=== PATIENT | female | born 1955 | race Caucasian/White ===

== ENCOUNTER 2019-06-21 12:37 | Emergency (ER) | payer OTHER ==
[2019-06-21] MEDS ORDERED: GI COCKTAIL 45 ML (Maalox/Lidocaine) PO ONE (13:17)
[2019-06-21] MEDS ORDERED: Zofran 4 MG/2 ML VIAL IV ONE (13:17)
[2019-06-21] MEDS ORDERED: Sodium Chloride 0.9% 1000 ML 1,000 ML IV STA (13:17)
[2019-06-21] MEDS ORDERED: Pepcid 20 MG VIAL IV ONE ×2 (13:17→13:23)
[2019-06-21] MEDS ORDERED: XYLOCAINE HCl Viscous ONE (13:23)
[2019-06-21] MEDS ORDERED: Zofran 4 MG/2 ML VIAL ONE (13:23)
[2019-06-21] MEDS ORDERED: MAALOX ES 30 ML UNIT DOSE ONE (13:26)
[2019-06-21] MEDS ORDERED: Sodium Chloride 0.9% 1000 ML 1,000 ML ONE (13:26)
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
[2019-06-21 13:44] LABS: BASOPHIL % 0.7 % (0.0-0.4); Basophil (Absolute #) 0.05 (0-0.4); Eosinophil (Absolute #) 0.29 (0-0.5); Granulocyte Absolute (ANC) 4.93 (1.4-6.9); Granulocytes % 67.3 % (36.0-66.0); Hematocrit 41.5 % (35-47); Hemoglobin 13.6 gm/dl (12.0-16.0); Lymphocyte (Absolute #) 1.42 (1.0-4.6); Lymphocytes % 19.4 % (24.0-44.0); Mean Cell Volume 94.7 fl (78-100); Mean Corpuscular Hemoglobin 31.1 pg (26-32); Mean Corpuscular Hgb Concent. 32.8 g/dl (32-36); Mean Platelet Volume 11.8 fl (6-9.5); Monocyte (Absolute #) 0.63 (0.0-1.3); Monocytes % 8.6 % (0.0-12.0); Platelet Count 188 K/mm3 (150-450); Red Blood Count 4.38 M/mm3 (4.1-5.4); Red Cell Distribution Width 14.3 % (11.5-14.0); White Blood Count 7.3 K/mm3 (4.0-10.5)
[2019-06-21 13:51] LABS: Appearance CLEAR (CLEAR); Bilirubin NEGATIVE (NEGATIVE); Blood NEGATIVE Ery/ul (0-5); Glucose NEGATIVE (NEGATIVE); Ketones NEGATIVE (NEGATIVE); Leukocyte Esterase NEGATIVE (NEGATIVE); Nitrite NEGATIVE (NEGATIVE); Protein,Urine Dip NEGATIVE (Negative); RBC 0-2 /HPF (0-2); Specific Gravity 1.019 (1.005-1.025); Urobilinogen NEGATIVE mg/dL (0-1)
[2019-06-21 14:09] LABS: ALBUMIN 3.9 g/dL (3.5-5.0); ALKALINE PHOSPHATASE 164 U/L (38-126); AMYLASE 57 U/L (30-110); ANION GAP 10.5 MEQ/L (5-15); BLOOD UREA NITROGEN 10 mg/dL (7-17); CHLORIDE 106 mmol/L (98-107); Calcium 9.5 mg/dL (8.4-10.2); Carbon Dioxide 27 mmol/L (22-30); Creatinine 1 0.82 mg/dL (0.52-1.04); Glucose 96 mg/dL (74-106); LIPASE 50 U/L (23-300); Potassium 3.9 mmol/L (3.5-5.1); SGOT/AST 26 U/L (14-36); SGPT/ALT 21 U/L (0-35); SODIUM 140 mmol/L (137-145); Total Protein 7.3 g/dL (6.3-8.2)
[2019-06-21] MEDS ORDERED: SUBLIMAZE 100 MCG/2 ML IV ONE (14:29)
[2019-06-21] MEDS ORDERED: SUBLIMAZE 100 MCG/2 ML ONE (14:33)
[2019-06-21 16:31] VITALS: BP 154/76; PULSE 61
[2019-06-21 16:46] VITALS: O2SAT 98
--- NOTE | 2019-06-21 20:22 | XRAY ---
Indication: Epigastric pain, nausea, and vomiting. Comparison: None 2 views of the abdomen demonstrates nonspecific nonobstructed bowel gas pattern with previous gastric bypass. No free air. Solid organs are unremarkable. Osseous structures intact with mild osteopenia, mild/moderate multilevel thoracolumbar degenerative spondylosis, and moderate double curvature scoliosis. Single PA chest is clear. Heart is not enlarged. Small hiatal hernia. Bony thorax intact with mild degenerative changes. Impression: Small hiatal hernia. Nonacute nonobstructed abdomen. Nonacute 1 view chest.
== END 2019-06-21 17:08 | disposition home or self-care (01) ==
LOC: ED 12:37
DX: K27.9 Peptic ulcer, site unspecified, unspecified as acute or chronic, without hemorrhage or perforation (principal); R10.13 Epigastric pain
CPT/HCPCS: 36000; 36415; 74022; 80053; 81001; 82150; 83605; 83690; 84484; 85025; 93005; 96360; 96374; 96375; 99284; J2405; J3010; A9270-GY

== ENCOUNTER 2021-09-06 08:31 | Day surgery (SDC) | payer MEDICARE ==
[2021-09-06] MEDS ORDERED: Sodium Chloride 0.9(Preservative Free) 10 ML IJ ONE (08:32)
[2021-09-06] MEDS ORDERED: Depo-Medrol 40 MG/ML IM ONE (08:32)
[2021-09-06] MEDS ORDERED: DIPRIVAN 200 MG/20 ML IV ONE (09:44)
--- NOTE | 2021-09-06 11:44 | XRAY ---
Indication: Right L4-S1 transforaminal JAMEL. Intraoperative fluoroscopy provided for 31 seconds. 3 digital spot image submitted for interpretation demonstrate posterior needle tips projecting over the expected right L4 and L5 nerve roots. Small amount of contrast injected for needle tip placement. Correlate with intraoperative findings/report.
--- NOTE | 2021-09-06 11:46 | XRAY ---
31 seconds fluoroscopy time in surgery for right L4-S1 transforaminal JAMEL.
[2021-09-06] MEDS ORDERED: Lactated Ringers 1,000 ML IV ONE (17:24)
== END 2021-09-06 10:09 | disposition home or self-care (01) ==
LOC: SDC-PAIN 08:31
PROVIDERS: ATTEND Psychiatry & Neurology Pain Medicine
DX: M54.16 Radiculopathy, lumbar region (principal); F41.9 Anxiety disorder, unspecified; F32.9 Major depressive disorder, single episode, unspecified; M19.90 Unspecified osteoarthritis, unspecified site; Z79.899 Other long term (current) drug therapy
CPT/HCPCS: 64483; 64484; 72100; 77003; J1030; J2704; Q9966

== ENCOUNTER 2021-11-01 13:03 | Day surgery (SDC) | payer MEDICARE ==
[2021-11-01] MEDS ORDERED: LIDOCAINE HCL 2% 100 MG/5 ML IJ ONE (13:04)
[2021-11-01] MEDS ORDERED: Lactated Ringers 1,000 ML IV ONE (14:42)
[2021-11-01] MEDS ORDERED: DIPRIVAN 200 MG/20 ML IV ONE (15:16)
--- NOTE | 2021-11-01 18:47 | XRAY ---
Indication: Bilateral L4-S1 MBB. Intraoperative fluoroscopy provided for 11 seconds. Single digital spot image submitted for interpretation demonstrates posterior needle tips projecting over the expected left and right L4-S1 nerve roots. Correlate with intraoperative findings/report.
--- NOTE | 2021-11-02 09:07 | XRAY ---
11 seconds fluoroscopy time in surgery for bilateral L4-S1 MBB.
== END 2021-11-01 15:42 | disposition home or self-care (01) ==
LOC: SDC-PAIN 13:03
PROVIDERS: ATTEND Psychiatry & Neurology Pain Medicine
DX: M47.816 Spondylosis without myelopathy or radiculopathy, lumbar region (principal); Z79.899 Other long term (current) drug therapy
CPT/HCPCS: 64493; 64494; 72020; 77002; J2704

== ENCOUNTER 2021-12-06 13:30 | Day surgery (SDC) | payer MEDICARE ==
[2021-12-06] MEDS ORDERED: LIDOCAINE HCL 2% 100 MG/5 ML IJ ONE (13:31)
[2021-12-06] MEDS ORDERED: Decadron 4 MG INJ IV ONE (13:31)
[2021-12-06] MEDS ORDERED: DIPRIVAN 200 MG/20 ML IV ONE (13:53)
[2021-12-06] MEDS ORDERED: Lactated Ringers 1,000 ML IV ONE (14:27)
--- NOTE | 2021-12-06 14:52 | XRAY ---
Indication: Bilateral L4-S1 MBB. Intraoperative fluoroscopy provided for 9 seconds. Single digital spot image submitted for interpretation demonstrates posterior needle tips projecting over the expected left and right L4-S1 nerve roots. Correlate with intraoperative findings/report.
--- NOTE | 2021-12-06 15:01 | XRAY ---
9 seconds fluoroscopy time in surgery for bilateral L4-S1 MBB.
== END 2021-12-06 14:16 | disposition home or self-care (01) ==
LOC: SDC-PAIN 13:30
PROVIDERS: ATTEND Psychiatry & Neurology Pain Medicine
DX: M47.816 Spondylosis without myelopathy or radiculopathy, lumbar region (principal); Z79.899 Other long term (current) drug therapy
CPT/HCPCS: 64493; 64494; 72020; 77002; J1100; J2704

== ENCOUNTER → 2022-03-14 | Day surgery (SDC) | payer MEDICARE ==
[~2022-03-14] MED LIST: DIPRIVAN 200 MG/20 ML IV ONE; Depo-Medrol 40 MG/ML IM ONE; MORPHINE SULFATE 2 MG INJ ONE; Sodium Chloride 0.9(Preservative Free) 10 ML IJ ONE
--- NOTE | 2022-03-14 18:27 | XRAY ---
Indication: Right L4-S1 transforaminal JAMEL. Intraoperative fluoroscopy provided for 33 seconds. 4 digital spot image submitted for interpretation demonstrates posterior needle tips projecting over the expected right L4 and L5 nerve roots. Small amount of contrast injected for needle tip placement. Correlate with intraoperative findings/report.
--- NOTE | 2022-03-15 09:20 | XRAY ---
33 seconds fluoroscopy time in surgery for L4-S1 transforaminal JAMEL.
== END ==
LOC: SDC-PAIN 13:22
PROVIDERS: ATTEND Psychiatry & Neurology Pain Medicine
DX: M54.16 Radiculopathy, lumbar region (principal); Z79.899 Other long term (current) drug therapy
CPT/HCPCS: 64483; 64484; 72100; 77003; J1030; J2270; J2704; Q9966